=== PATIENT | male | born 1945 | race Caucasian/White ===

== ENCOUNTER 2018-11-01 12:59 | Emergency (ER) | payer BC ==
[~2018-11-01] VITALS: Ht 170.2 cm; Wt 69.9 kg
[2018-11-01 14:13] VITALS: Ht 170.2 cm; Wt 69.9 kg
[2018-11-01 15:24] VITALS: BP 140/79
== END 2018-11-01 15:24 | disposition home or self-care (01) ==
LOC: ED 12:59
DX: J40 Bronchitis, not specified as acute or chronic (principal); I10 Essential (primary) hypertension; Z98.890 Other specified postprocedural states

== ENCOUNTER 2019-10-20 18:02 | Inpatient (IN) | payer BC ==
[~2019-10-20] VITALS: Ht 165.1 cm; Wt 68.0 kg
[2019-10-20 18:28] VITALS: Ht 165.1 cm; Wt 68.0 kg
[2019-10-20 20:11] LABS: BASOPHIL % 0.3 % (0-2); PLATELET COUNT 173 x10^3mcL (130-400)
[2019-10-20 20:12] LABS: RED CELL DISTRIBUTION WIDTH 14.7 % (11.5-14.5)
[2019-10-20 20:24] LABS: CALCIUM 8.4 mg/dL (8.5-10.1); CARBON DIOXIDE 26.8 mmol/L (21-32); CHLORIDE SERUM 106 mmol/L (98-107); CREATININE SERUM 0.9 mg/dL (0.7-1.3); GLUCOSE SERUM 99 mg/dL (74-106); POTASSIUM SERUM 4.5 mmol/L (3.5-5.1); SODIUM SERUM 141 mmol/L (136-145)
[2019-10-20 20:28] LABS: ALBUMIN 3.8 g/dL (3.4-5.0); ALKALINE PHOSPHATASE 76 U/L (46-116); ALT/SGPT 47 U/L (16-63); AST/SGOT 36 U/L (15-37); BILIRUBIN TOTAL 0.9 mg/dL (0.20-1.00); TOTAL PROTEIN, SERUM 7.1 g/dL (6.4-8.2)
[2019-10-20 23:51] VITALS: BP 120/63
[2019-10-21 04:12] LABS: BASOPHIL % 0.9 % (0-2); PLATELET COUNT 136 x10^3mcL (130-400)
[2019-10-21 04:29] LABS: ALKALINE PHOSPHATASE 64 U/L (46-116); ALT/SGPT 41 U/L (16-63); AST/SGOT 34 U/L (15-37); CALCIUM 7.9 mg/dL (8.5-10.1); CARBON DIOXIDE 28.7 mmol/L (21-32); CHLORIDE SERUM 108 mmol/L (98-107); CREATININE SERUM 0.8 mg/dL (0.7-1.3); GLUCOSE SERUM 88 mg/dL (74-106); MAGNESIUM 2.1 mg/dL (1.8-2.4); POTASSIUM SERUM 3.7 mmol/L (3.5-5.1); SODIUM SERUM 142 mmol/L (136-145)
[2019-10-21 04:47] LABS: ALBUMIN 3.3 g/dL (3.4-5.0); TOTAL PROTEIN, SERUM 6.1 g/dL (6.4-8.2)
[2019-10-21 06:26] VITALS: BP 102/53
[2019-10-21 09:23] VITALS: BP 121/58
[2019-10-21] MEDS ORDERED: ATORVASTATIN CA40 M1 PO (11:27)
[2019-10-21] MEDS ORDERED: ECO81 PO (11:27)
[2019-10-21 12:38] VITALS: BP 111/60
[2019-10-21 17:47] VITALS: BP 117/63
[2019-10-21 21:23] VITALS: BP 103/47
[2019-10-22 06:04] VITALS: BP 94/48
[2019-10-22 08:40] VITALS: BP 107/61
[2019-10-22 12:50] VITALS: BP 110/53
== END 2019-10-22 13:47 | disposition short-term general hospital (02) | DRG 190 ==
LOC: ED 18:02 → DU 21:16
PROVIDERS: Emergency Medicine; Internal Medicine Pulmonary Disease; ADMIT Hospitalist
DX: I21.4 Non-ST elevation (NSTEMI) myocardial infarction (principal); G40.909 Epilepsy, unspecified, not intractable, without status epilepticus; I11.9 Hypertensive heart disease without heart failure; Z95.2 Presence of prosthetic heart valve; R55 Syncope and collapse; I25.10 Atherosclerotic heart disease of native coronary artery without angina pectoris; Z68.23 Body mass index [BMI] 23.0-23.9, adult; Z95.5 Presence of coronary angioplasty implant and graft
CPT/HCPCS: 90658; 90732; G0378; J1642; J1644